=== PATIENT | male | born 1965 | race Caucasian/White ===

== ENCOUNTER 2018-04-25 16:13 | Emergency (ER) | payer BC ==
[2018-04-25] MEDS ORDERED: Metoclopramide IV* 5 MG/ML 2 ML VIAL IV ONE (17:06)
[2018-04-25] MEDS ORDERED: diPHENhydraMINE IV* 50 MG/ML 1 ml VIAL (BENADRYL) IV ONE (17:06)
--- NOTE | 2018-04-25 17:15 | ED ---
Headache - HPI Summary HPI Summary: This is makenzie Hidalgo documenting for attending Nader Rowley MD. This patient is a 52 year old MF presenting to [facility] with a chief complaint of a fluctuating, deep, throbbing L posterior ORTIZ that radiates to behind his eye since 04/20/2018. The patient rates the pain 4/10 in severity. Symptoms aggravated by movement of head. Patient reports not sleeping well, palpitations , and a sore spot on his throat. Patient denies any injuries, dizziness, vertigo , or light-headedness. He thinks the symptoms may be due to holding in a sneeze , but there was no pain immediately following it. The patient has taken ibuprofen which he reports has helped. 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 The patient does not smoke. He has a PMHx of diverticulitis. - History Of Current Complaint Chief Complaint: EDHeadache Stated Complaint: LT SIDE HEAD PAIN Time Seen by Provider: 04/25/18 16:55 Hx Obtained From: Patient Onset/Duration: Sudden Onset, Started days ago Currently Pain Is: Current Pain Scale(0-10)= - 4/10 Timing: Constant, Days - since 04/20/2018 Character: Throbbing - fluctuating, deep Location of Headache: Other: - L posterior Radiates to: behind his eye Aggravating Factor: Other - Movement Allevating Factors: Other (Noted In Comments) - Ibuprofin Associated Signs And Symptoms: Other (Noted In Comments) - Palpitations, not sleeping well, and a sore spot on his throat. Denies any injuries, dizziness, vertigo, or light-headedness. - Allergies/Home Medications Allergies/Adverse Reactions: Allergies Allergy/AdvReac Type Severity Reaction Status Date / Time meperidine [From Demerol] Allergy Nausea And Verified 04/25/18 17:10 Vomiting Home Medications: Home Medications Valsartan TAB* [Diovan TAB*] 40 mg PO DAILY 04/25/18 [History Confirmed 04/25/18 ] PMH/Surg Hx/FS Hx/Imm Hx Endocrine/Hematology History: Denies: Hx Anticoagulant Therapy, Hx Diabetes, Hx Thyroid Disease Cardiovascular History: Denies: Hx Hypertension, Hx Pacemaker/ICD Respiratory History: Denies: Hx Asthma, Hx Chronic Obstructive Pulmonary Disease (COPD) GI History: Reports: Hx Diverticulosis History: Denies: Hx Renal Disease Sensory History: Reports: Hx Contacts or Glasses Opthamlomology History: Reports: Hx Contacts or Glasses Neurological History: Denies: Hx Dementia, Hx Seizures Psychiatric History: Denies: Hx Substance Abuse - Surgical History Surgery Procedure, Year, and Place: appendectomy, ruptured diverticulitis. 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 Lives: With Family Alcohol Use: Occasionally Substance Use Type: Reports: None Smoking Status (MU): Never Smoked Tobacco Review of Systems Positive: Other - Not sleeping well Positive: Other - Sore spot on his throat Positive: Palpitations Positive: Other - Denies injuries Neurological: Other - Denies dizziness, denies vertigo, denies light-headedness Positive: Headache - fluctuating, deep, throbbing L posterior ORTIZ that radiates to behind his eye All Other Systems Reviewed And Are Negative: Yes Physical Exam - Summary Physical Exam Summary: Appearance: Well appearing, no pain distress Skin: warm, dry, reflects adequate perfusion Head/face: normal Eyes: EOMI, JUANITA ENT: 1 cm oval abrasion by his L ear Neck: supple, non-tender Respiratory: CTA, breath sounds present Cardiovascular: RRR, pulses symmetrical Abdomen: non-tender, soft Bowel Sounds: present Musculoskeletal: normal, strength/ROM intact Neuro: normal, sensory motor intact, A&Ox3 Triage Information Reviewed: Yes Vital Signs On Initial Exam: Initial Vitals Temp Pulse Resp BP Pulse Ox 97.5 F 66 15 167/104 98 04/25/18 16:15 04/25/18 16:15 04/25/18 16:15 04/25/18 16:15 04/25/18 16:15 Vital Signs Reviewed: Yes Diagnostics - Vital Signs Vital Signs Temp Pulse Resp BP Pulse Ox 04/25/18 16:15 97.5 F 66 15 167/104 98 - Laboratory Result Diagrams: 04/25/18 17:19 04/25/18 17:20 Lab Statement: Any lab studies that have been ordered have been reviewed, and results considered in the medical decision making process. - CT Head CTA CT Interpretation Completed By: Radiologist - CTA of the neck and head demonstrates no evidence of significant stenosis in either internal carotid artery. No evidence of aneurysmal dilatation, branch occlusion or carotid artery dissection is noted. ED Physician has reviewed this report. Brain CT CT Interpretation Completed By: Radiologist - No intracranial mass or hemorrhage is noted. ED Physician has reviewed this report. Re-Evaluation - Re-Evaluation n Re-Evaluation Time: 18:38 Change: Improved Comment: Sx are improved but he did feel a pain when he moved his head once. Physician believes it is likely cervical in nature, probably arthritic. Headache Course/Dx - Course Course Of Treatment: Patient with intermittent sharp pain that is felt to be pulsatile posterior to the left ear. Head CT as well as CT angiogram of the head and neck are performed. There is no evidence for subarachnoid hemorrhage, aneurysm, etc. Patient was feeling better following treatment was discharged in good condition on Mobic given a likely cervical source for his discomfort. - Diagnoses Differential Diagnosis/HQI/PQRI: Subdural Hematoma, Sinus Headache, Subarachnoid Hemorrhage, Tension Headache, Viral Syndrome, Other - Cervicogenic headache Provider Diagnoses: Cervicogenic headache Discharge - Sign-Out/Discharge Documenting (check all that apply): Patient Departure - D/C - Discharge Plan Condition: Improved Disposition: HOME Prescriptions: Meloxicam [Mobic] 7.5 - 15 mg PO DAILY PRN #30 tablet PRN Reason: neck pain/headache Patient Education Materials: Acute Headache (ED) Referrals: Ayo Culver MD [Primary Care Provider] - Additional Instructions: Call your doctor Friday to follow-up. Your headaches may be originating from your cervical spine in your neck. Return if worse, new symptoms or other concerns as discussed. You may benefit from physical therapy or care management specialist. - Billing Disposition and Condition Condition: IMPROVED Disposition: Home
[2018-04-25 17:25] LABS: ABS Basophils 0.1 10^3/ul (0-0.2); ABS Eosinophils 0.2 10^3/ul (0-0.6); ABS Monocytes 0.7 10^3/ul (0-0.8); ABS Neutrophils 3.8 10^3/ul (1.5-7.7); ABS Nucleated RBC 0 10^3/ul; Eosinophil % 2.8 % (0-6); Hematocrit 45 % (42-52); Hemoglobin 15.4 g/dl (14.0-18.0); Lymphocyte % 30.4 % (25-47); Mean Corpuscular HGB Conc 34 g/dl (31-36); Mean Corpuscular Hemoglobin 30 pg (27-31); Mean Corpuscular Volume 89 fL (80-94); Mean Platelet Volume 9.1 um3 (7.4-10.4); Nucleated Red Blood Cells % 0.1; Platelet Count 198 10^3/ul (150-450); Red Blood Count 5.09 10^6/ul (4.00-5.40); Red Cell Distribution Width 14 % (10.5-15); White Blood Count 6.7 10^3/ul (3.5-10.8)
[2018-04-25 17:41] LABS: EGFR Non-African American 73.9 (>60)
[2018-04-25] MEDS ORDERED: Iohexol 350* (CONTRAST) 500 ML MDV IV ONE (17:50)
--- NOTE | 2018-04-25 18:24 | RAD ---
Indication: Left occipital headache. CT of the brain was performed without IV contrast. Ventricular structures are midline. No midline shift is noted. The extra-axial spaces are unremarkable. There is no evidence of intracranial mass or hemorrhage. No other high or low density lesions are identified. Mastoid air cells and paranasal sinuses are otherwise unremarkable. IMPRESSION: No intracranial mass or hemorrhage is noted.
--- NOTE | 2018-04-25 18:27 | RAD ---
Indication: Left occipital headache. Contrast: Administered 80.1 ml of OMNIPAQUE 350 mg/ml CTA of the neck and head was performed after IV contrast administration. Coronal and sagittal reconstructed images were obtained. Multiple maximum intensity projection images were also obtained. Origins of the great vessels are grossly unremarkable. Common origin of left common carotid and brachiocephalic artery is noted. Common carotid arteries bilaterally are unremarkable. The internal carotid artery demonstrates no evidence of atherosclerosis. No evidence of carotid artery dissection is both vertebral arteries are patent. Dominant left vertebral artery is noted. Intracranial circulation demonstrates intracavernous portion of the internal carotid artery to be unremarkable. Normal A1 and M1 segments bifurcation is noted. Anterior and middle cerebral artery demonstrates no branch occlusion. Posterior cerebral artery are grossly unremarkable. No aneurysmal dilatation is noted. The venous structures are grossly unremarkable. No evidence of nonenhancing lesions are noted in the brain. Soft tissues of the neck demonstrates parotid glands and submandibular glands are unremarkable. Inferior thyroid lobes are unremarkable. The lung apices are unremarkable. IMPRESSION: CTA of the neck and head demonstrates no evidence of significant stenosis in either internal carotid artery. No evidence of aneurysmal dilatation, branch occlusion or carotid artery dissection is noted.
[2018-04-25 18:52] VITALS: BP 134/93
[2018-04-26] MEDS ORDERED: CMC:Meloxicam(NF) 7.5 MG TAB PO SCH (09:00)
== END 2018-04-25 18:52 | disposition home or self-care (01) ==
LOC: ED 16:13
DX: G44.89 Other headache syndrome (principal); R00.2 Palpitations; Z88.5 Allergy status to narcotic agent
CPT/HCPCS: 36415; 70450; 70496; 70498; 80048; 85025; 96374; 96375; 99283; J1200; J2765; Q9967

== ENCOUNTER 2018-08-15 19:22 | Emergency (ER) | payer BC ==
[2018-08-15 19:32] VITALS: BP 153/97
[2018-08-15] MEDS ORDERED: Tetan/Diph/Pertus SYR(Tdap)* 0.5 ML SYR(BOOSTRIX) use SYR IM ONE (19:33)
[2018-08-15] MEDS ORDERED: Levofloxacin TAB* 500 MG PO ONE (19:48)
[2018-08-15] MEDS ORDERED: Cephalexin CAP* 500 MG PO ONE (19:48)
--- NOTE | 2018-08-15 19:51 | ED ---
Skin Complaint - HPI Summary HPI Summary: Pt presents w/ 2 puncture wound to sole of Rt foot which occurred last night. Duncan metal piece through sole of shoe and into foot - had to pull from foot and shoe. Areas of puncture are tender and minimal bleeding at time of injury. cleaned with alcohol No FB sensation and does not believe anything is retained. Unsure of last tetanus. Areas are tender to touch and with direct weight bearing but this is tolerable. - History of Current Complaint Chief Complaint: UCSkin Time Seen by Provider: 08/15/18 19:33 Stated Complaint: STEPPED ON LARGE METAL STAPLE Hx Obtained From: Patient Pain Intensity: 1 - Allergy/Home Medications Allergies/Adverse Reactions: Allergies Allergy/AdvReac Type Severity Reaction Status Date / Time meperidine [From Demerol] Allergy Nausea And Verified 08/15/18 19:32 Vomiting PMH/Surg Hx/FS Hx/Imm Hx Previously Healthy: Yes Endocrine/Hematology History: Denies: Hx Anticoagulant Therapy, Hx Diabetes, Hx Thyroid Disease, Autoimmune Disease Cardiovascular History: Reports: Hx Hypertension - on med Denies: Hx Pacemaker/ICD Respiratory History: Denies: Hx Asthma, Hx Chronic Obstructive Pulmonary Disease (COPD) GI History: Reports: Hx Diverticulosis History: Denies: Hx Renal Disease Sensory History: Reports: Hx Contacts or Glasses Opthamlomology History: Reports: Hx Contacts or Glasses Neurological History: Denies: Hx Dementia, Hx Seizures Psychiatric History: Denies: Hx Substance Abuse - Surgical History Surgery Procedure, Year, and Place: appendectomy, ruptured diverticulitis. right wrist fx repair Infectious Disease History: No Infectious Disease History: Denies: Hx Clostridium Difficile, Hx Hepatitis, Hx Human Immunodeficiency Virus (HIV), Hx of Known/Suspected MRSA, Hx Shingles, Hx Tuberculosis, Traveled Outside the [place] in Last 30 Days - Family History Known Family History: Positive: Cardiac Disease, Other - Gout, - Social History Occupation: Employed Full-time Lives: With Family Alcohol Use: Occasionally Hx Substance Use: No Substance Use Type: Reports: None Hx Tobacco Use: No Smoking Status (MU): Never Smoked Tobacco Review of Systems Constitutional: Negative Positive: no symptoms reported Musculoskeletal: Negative Skin: Other - puncture wounds Rt foot Neurological: Negative Psychological: Normal All Other Systems Reviewed And Are Negative: Yes Physical Exam Triage Information Reviewed: Yes Vital Signs On Initial Exam: Initial Vitals Temp Pulse Resp BP Pulse Ox 98.7 F 87 16 153/97 99 08/15/18 19:28 08/15/18 19:28 08/15/18 19:28 08/15/18 19:28 08/15/18 19:28 Vital Signs Reviewed: Yes Appearance: Positive: Well-Appearing, No Pain Distress, Well-Nourished Skin: Positive: Warm, Skin Color Reflects Adequate Perfusion, Dry - 2 pinpoint scabs on sole of Rt foot - TTP - no palpable induration or sharp objects; no edema, no streaking, no drainage Head/Face: Positive: Normal Head/Face Inspection Eyes: Positive: Normal, EOMI ENT: Positive: Hearing grossly normal Respiratory/Lung Sounds: Positive: Breath Sounds Present Cardiovascular: Positive: Pulses are Symmetrical in both Upper and Lower Extremities. Negative: Leg Edema Left, Leg Edema Right Musculoskeletal: Positive: Normal, Strength/ROM Intact Neurological: Positive: Normal, Sensory/Motor Intact, Alert, Oriented to Person Place, Time, CN Intact II-III Psychiatric: Positive: Normal Diagnostics - Vital Signs Vital Signs Temp Pulse Resp BP Pulse Ox 08/15/18 19:28 98.7 F 87 16 153/97 99 - Laboratory Lab Statement: Any lab studies that have been ordered have been reviewed, and results considered in the medical decision making process. Course/Dx - Course Course Of Treatment: Refrained from XR as pt brought duncan metal piece with him - appears to be completely intact. Since this went through sole of shoe and pt is tender, will cover with prophylactic anbx for strep and pseud. Advised supportive care and close monitoring - reviewed danger s/sx and pt agrees w/ plan. - Diagnoses Provider Diagnoses: Puncture wound of right foot Discharge - Sign-Out/Discharge Documenting (check all that apply): Patient Departure All imaging exams completed and their final reports reviewed: No Studies - Discharge Plan Condition: Stable Disposition: HOME Prescriptions: Cephalexin CAP* [Keflex CAP*] 500 mg PO BID #10 cap Levofloxacin TAB* [Levaquin TAB*] 500 mg PO DAILY #5 tab Patient Education Materials: Puncture Wound (ED) Referrals: Ayo Culver MD [Primary Care Provider] - Additional Instructions: Soak foot 1 -2 x day in soapy soak alternating with epsom salt - rinse well, pat dry and cover wounds with bandage but avoid ointments, creams, etc Rest, elevate, ice/heat as needed for pain May also take ibuprofen alternating with acetaminophen for pain Follow-up with PCP if soreness persists or worsens *If you develop redness, swelling, streaking, purulent drainage, fever, chills, go to ED - Billing Disposition and Condition Condition: STABLE Disposition: Home
== END 2018-08-15 20:02 | disposition home or self-care (01) ==
LOC: UCEAST 19:22
DX: S91.331A Puncture wound without foreign body, right foot, initial encounter (principal); W22.8XXA Striking against or struck by other objects, initial encounter; Y92.9 Unspecified place or not applicable; Z88.5 Allergy status to narcotic agent
CPT/HCPCS: 90471; 90715; 99212; A9270-GY; G0463

== ENCOUNTER 2018-09-10 22:11 | Emergency (ER) | payer BC ==
--- OUTSIDE RECORDS SUMMARY | 2018-09-10 22:32 | XMS REPORT ---
:1965 External Reference #:[id number] Author Organization [facility] Address [address] [place] [address] Phone [phone] Care Team Providers Name Role Phone Ayo Culver MD Care Team Information Ring Attacher Unavailable Ayo Culver MD Primary Care Physician Unavailable Payers Type Date Identification Numbers Payment Provider Subscriber Commercial Effective: Policy Number: BC/BS Of ANDRE Jason Leon 2012 [id number] Group Name: [employer] [address] [address] PayID: [id number] [place] [address] Problems Date Description Provider Status Onset: 02/15/2014 Phlebitis and thrombophlebitis Ayo Culver M.D. Active Onset: 02/15/2014 Diverticular disease of colon Ayo Culver M.D. 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 Cigarette Use Nonsmoker Smokeless Tobacco Former Smokeless Tobacco User, Used Four Times Daily ETOH Use Rare Smoking Patient has never smoked Daily Caffeine Consumes on average 1 cup of coffee per day Seat Belt/Car Seat Always uses a seat belt Allergies, Adverse Reactions, Alerts Date Description Reaction Status Severity Comments 01/27/2008 Demerol active 09/07/2015 Bee Sting active Medications Medication Date Status Form Strength Qnty SIG Indications Ordering Provider Valsartan 10/07/ Active Tablets 40mg 90tab 1 by mouth I10 Bebe 2015 s every day Juan C Henson Probiotic / Active Capsules 1 po qd Unknown 0000 Multivitamins / Active Capsules 1 by mouth Unknown 0000 every day Ketoconazole 09/18/ Hx Cream 2% 30gm apply once B37.2 Samantha 2015 - a day x 2 Lennox, 11/12/ wks Afnp-C 2018 Lisinopril 09/21/ Hx Tablets 5mg 30tab 1 by mouth I10 Samantha 2015 - s every day Lennox, 10/07/ Afnp-C 2015 No Active 06/02/ Hx Unknown Medications 2014 - 2014 Tobramycin 06/02/ Hx Solution 0.3% 5ml 2 drops in 372.30 Lissette 2015 - the left Aaron, CREATIVE RESOURCE MANAGER 06/07/ eye three 2015 times a day times a day until clear Ciprofloxacin 02/15/ Hx Tablets 250mg 14tab 1 po bid Ayo Vinson HCL 2013 - Palomo, 06/02/ M.D. 2014 Indomethacin 02/15/ Hx Capsules 25mg 30cap 1 po tid 451.84 Ayo Vinson 2013 - prn pain Palomo, 02/25/ with food M.D. 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 2009 Chantix 03/24/ Hx Tablets 1mg 60tab 1 PO bid 305.1 Ayo ACelsa 2007 Palomo, 04/21/ M.D. 2012 Chantix 01/26/ Hx 1unit 1 starter 305.1 Ayo ACelsa 2007 pack Palomo, 03/24/ M.D. 2007 Vitamin D / Hx Tablets 1000Unit 1 po qd Unknown 0000 - 2015 Medications Administered in Office Medication Date Status Form Strength Qnty SIG Indications Ordering Provider TB Intradermal Injection Family Test 2007 [facility] Immunizations CPT Code Status Date Vaccine Lot # [id number] Given 08/15/2018 Tdap Tetanus, W Pertussis 48151 Given 08/04/2007 DO Not Use Split Influenza Virus Vaccine 68680 Given 05/28/2007 Tetanus And Diptheria Adult Preservative Free >7Yrs 18124 Given 06/29/1990 Hepatitis B Immunization, adult dosage, for intramuscular use 13208 Given 10/13/1989 Hepatitis B Immunization, adult dosage, for intramuscular use 99451 Given 08/27/1989 Hepatitis B Immunization, adult dosage, for intramuscular use 44972 Given 08/27/1989 Tetanus And Diptheria Adult Preservative Free >7Yrs 33185 Given 08/27/1989 MMR Virus Immunization Vital Signs Date Vital Result Comment 09/10/2018 BP Systolic 118 mmHg BP Diastolic 84 mmHg Heart Rate 72 /min Body Temperature 97.9 F Height 69 inches 5'9" Weight 237.00 lb BMI (Body Mass Index) 35.0 kg/m2 11/12/2017 BP Systolic 110 mmHg BP Diastolic 90 mmHg Heart Rate 64 /min Body Temperature 97.7 F Weight 245.12 lb 09/18/2016 BP Systolic 124 mmHg BP Diastolic 82 mmHg Heart Rate 60 /min Body Temperature 97.3 F Respiratory Rate 16 /min Height 69 inches 5'9" Weight 240.50 lb BMI (Body Mass Index) 35.5 kg/m2 Right Visual Acuity Distance 20/25 Left Visual Acuity Distance 20/25 11/01/2015 BP Systolic 128 mmHg BP Diastolic 94 mmHg Heart Rate 64 /min Body Temperature 97.9 F Respiratory Rate 16 /min Height 70 inches 5'10" Weight 231.00 lb BMI (Body Mass Index) 33.1 kg/m2 10/07/2015 BP Systolic 120 mmHg BP Diastolic 84 mmHg Heart Rate 80 /min Body Temperature 98.0 F Respiratory Rate 18 /min Height 70 inches 5'10" Weight 233.00 lb BMI (Body Mass Index) 33.4 kg/m2 09/21/2015 BP Systolic 146 mmHg BP Diastolic 100 mmHg Heart Rate 64 /min Body Temperature 98.3 F Respiratory Rate 18 /min Height 70 inches 5'10" Weight 239.00 lb BMI (Body Mass Index) 34.3 kg/m2 09/07/2015 BP Systolic 162 mmHg BP Diastolic 90 mmHg Heart Rate 60 /min Body Temperature 97.2 F Height 70 inches 5'10" Weight 245.50 lb BMI (Body Mass Index) 35.2 kg/m2 06/02/2015 BP Systolic 140 mmHg BP Diastolic 100 mmHg Heart Rate 72 /min Body Temperature 97.4 F Respiratory Rate 16 /min Height 69.5 inches 5'9.50" Weight 235.00 lb BMI (Body Mass Index) 34.2 kg/m2 02/15/2014 BP Systolic 144 mmHg BP Diastolic 90 mmHg Heart Rate 72 /min Body Temperature 97.3 F Respiratory Rate 16 /min Height 69.5 inches 5'9.50" Weight 233.00 lb BMI (Body Mass Index) 33.9 kg/m2 11/29/2013 BP Systolic 150 mmHg BP Diastolic 90 mmHg Heart Rate 68 /min Body Temperature 97.3 F Respiratory Rate 16 /min Height 69.5 inches 5'9.50" Weight 240.00 lb BMI (Body Mass Index) 34.9 kg/m2 04/21/2013 BP Systolic 128 mmHg BP Diastolic 96 mmHg Heart Rate 88 /min Body Temperature 98.0 F Height 69.5 inches 5'9.50" Weight 237.00 lb BMI (Body Mass Index) 34.5 kg/m2 01/19/2011 BP Systolic 120 mmHg BP Diastolic 80 mmHg Heart Rate 80 /min Body Temperature 99.0 F Height 69.5 inches 5'9.50" Weight 237.00 lb BMI (Body Mass Index) 34.5 kg/m2 02/16/2008 BP Systolic 130 mmHg BP Diastolic 80 mmHg Heart Rate 68 /min Height 69.5 inches 5'9.50" Weight 212.00 lb BMI (Body Mass Index) 30.9 kg/m2 01/27/2008 BP Systolic 112 mmHg BP Diastolic 82 mmHg Heart Rate 64 /min Body Temperature 98.0 F Respiratory Rate 16 /min Height 69.5 inches 5'9.50" Weight 212.00 lb BMI (Body Mass Index) 30.9 kg/m2 Results Test Date Test Result H/L Range Note Basic Metabolic Panel 04/25/2018 Sodium 138 mmol/L 135-145 Potassium 4.2 mmol/L 3.5-5.0 Chloride 104 mmol/L 101-111 Co2 Carbon Dioxide 27 mmol/L 22-32 Anion Gap 7 mmol/L 2-11 Glucose 82 mg/dL 70-100 Blood Urea Nitrogen 16 mg/dL 6-24 Creatinine 1.05 mg/dL 0.67-1.17 BUN/Creatinine Ratio 15.2 8-20 Calcium 9.6 mg/dL 8.6-10.3 Egfr Non- 73.9 >60 Egfr 89.4 >60 1 CBC Auto Diff 04/25/2018 White Blood Count 6.7 10^3/uL 3.5-10.8 Red Blood Count 5.09 10^6/uL 4.00-5.40 Hemoglobin 15.4 g/dL 14.0-18.0 Hematocrit 45 % 42-52 Mean Corpuscular Volume 89 fL 80-94 Mean Corpuscular Hemoglobin 30 pg 27-31 Mean Corpuscular HGB Conc 34 g/dL 31-36 Red Cell Distribution Width 14 % 10.5-15 Platelet Count 198 10^3/uL 150-450 Mean Platelet Volume 9.1 um3 7.4-10.4 Abs Neutrophils 3.8 10^3/uL 1.5-7.7 Abs Lymphocytes 2.0 10^3/uL 1.0-4.8 Abs Monocytes 0.7 10^3/uL 0-0.8 Abs Eosinophils 0.2 10^3/uL 0-0.6 Abs Basophils 0.1 10^3/uL 0-0.2 Abs Nucleated RBC 0 10^3/uL Granulocyte % 55.7 % 38-83 Lymphocyte % 30.4 % 25-47 Monocyte % 10.0 % High 0-7 Eosinophil % 2.8 % 0-6 Basophil % 1.1 % 0-2 Nucleated Red Blood Cells % 0.1 Complete Blood Count 10/07/2016 WBC 5.2 x10^3/UL 3.6-9.6 RBC 5.42 x10^6/UL 3.90-5.70 HGB 16.7 g/dL 12.1-17.2 HCT 49 % 36-50 MCV 91.0 fL 82.2-97.4 MCH 30.8 pg 27.6-33.3 MCHC 34.0 g/dL 33.0-35.5 RDW 13.8 % High 11.6-13.7 PLT 207 x10^3/UL 150-400 MPV 7.3 fL Low 7.4-10.4 Gran # 3.1 x10^3/UL 1.5-7.2 Lymph# 1.9 x10^3/UL 0.7-4.9 [place]# 0.2 x10^3/UL 0.1-0.9 Gran % 57.2 % 42.2-75.2 Lymph % 38.0 % 20.5-51.1 [place]% 4.8 % 1.7-9.3 Comprehensive Metabolic Prof 10/07/2016 Sodium 139 mEq/L 134-149 Potassium 4.6 mEq/L 3.6-5.5 Chloride 98 mEq/L 94-112 Carbon Dioxide 23 mEq/L 21-32 Glucose 108 mg/dL High 70-105 2 BUN 10 mg/dL 6-26 Creatinine 1.1 mg/dL 0.6-1.4 BUN/Creat Ratio 9.1 CALC 8.0-36.0 Calcium 9.8 mg/dL 8.6-10.2 Total Protein 7.2 g/dL 6.4-8.3 Albumin 4.7 g/dL 3.8-5.5 Globulin 2.5 g/dL 2.0-4.8 A/G Ratio 1.9 CALC 0.6-2.3 Alk. Phosphatase 80 U/L 22-95 Alt (SGPT) 62 U/L High 7-35 Ast (Sgot) 35 U/L High 5-34 Total Bilirubin 0.9 mg/dL 0.2-1.3 GFR Non- >60 ml/min/1.73m^ >=60 GFR >60 ml/min/1.73m^ >=60 Lipid Profile 10/07/2016 Cholesterol 186 mg/dL 120-200 Triglycerides 120 mg/dL 30-200 HDL Cholesterol 55 mg/dL 30-70 LDL (Calculated) 107 CALC 0-129 VLDL Cholesterol 24 mg/dL 0-50 HDL Risk Factor 3.4 CALC 0.0-4.4 Laboratory test finding 10/07/2016 PSA 0.4 ng/mL 0.0-4.0 TSH 2.73 mIU/L 0.50-6.00 Ua - Non Micro (Fma) 09/18/2016 Appearance yellow Color clear Glucose, Urine (Fma/CMC/CTX) neg Bilirubin neg Ketones neg SP Grav >=1.030 Blood neg PH 5.5 Protein neg Urobil 0.2 Nitrite neg Leukocytes (Fma/CMC/Centrex) neg Ua - Non Micro (Fma) 09/07/2015 Appearance yellow Color clear Glucose, Urine (Fma/CMC/CTX) neg Bilirubin neg Ketones neg SP Grav 1.020 Blood neg PH 5.5 Protein neg Urobil 0.2 Nitrite neg Leukocytes (Fma/CMC/Centrex) neg Complete Blood Count 09/07/2015 WBC 5.8 x10^3/UL 3.6-9.6 RBC 5.52 x10^6/UL 3.90-5.70 HGB 16.8 g/dL 12.1-17.2 HCT 50 % 36-50 MCV 91.0 fL 82.2-97.4 MCH 30.5 pg 27.6-33.3 MCHC 33.5 g/dL 33.0-35.5 RDW 13.9 % High 11.6-13.7 PLT 271 x10^3/UL 150-400 MPV 8.2 fL 7.4-10.4 Gran # 3.6 x10^3/UL 1.5-7.2 Lymph# 1.9 x10^3/UL 0.7-4.9 [place]# 0.3 x10^3/UL 0.1-0.9 Gran % 60.9 % 42.2-75.2 Lymph % 33.6 % 20.5-51.1 [place]% 5.5 % 1.7-9.3 Hepatitis Panel, Acute 09/07/2015 Hep A Ab, IgM Negative Negative 3 HBsAg Screen Negative Negative 3 Hep B Core Ab, IgM Negative Negative 3 Hep C Virus Ab 0.1 s/coratio 0.0-0.9 3, 4 Comprehensive Metabolic Prof 09/07/2015 Sodium 140 mEq/L 134-149 Potassium 4.1 mEq/L 3.6-5.5 Chloride 100 mEq/L 94-112 Carbon Dioxide 26 mEq/L 21-32 Glucose 106 mg/dL High 70-105 5 BUN 14 mg/dL 6-26 Creatinine 1.0 mg/dL 0.6-1.4 BUN/Creat Ratio 14.0 CALC 8.0-36.0 Calcium 9.7 mg/dL 8.6-10.2 Total Protein 7.6 g/dL 6.4-8.3 Albumin 4.9 g/dL 3.8-5.5 Globulin 2.7 g/dL 2.0-4.8 A/G Ratio 1.8 CALC 0.6-2.3 Alk. Phosphatase 89 U/L 22-95 Alt (SGPT) 60 U/L High 7-35 6 Ast (Sgot) 34 U/L 5-34 Total Bilirubin 0.8 mg/dL 0.2-1.3 GFR Non- >60 ml/min/1.73m^ >=60 GFR >60 ml/min/1.73m^ >=60 Lipid Profile 09/07/2015 Cholesterol 230 mg/dL High 120-200 Triglycerides 105 mg/dL 30-200 HDL Cholesterol 69 mg/dL 30-70 LDL (Calculated) 140 CALC High 0-129 VLDL Cholesterol 21 mg/dL 0-50 HDL Risk Factor 3.3 CALC 0.0-4.4 Laboratory test finding 09/07/2015 TSH 3.52 mIU/L 0.50-6.00 7 PSA 1.1 ng/mL 0.0-4.0 Panel 410086- Nys PT Only 09/07/2015 HIV 1/O/2 Abs-Index Value <1.00 < 1.00 3, 8 HIV 1/O/2 Abs, Qual Non Reactive Non Reactive 3 Throat-Beta Strept 01/01/2015 Throat Beta Strep (SEE NOTE) 9 Culture Surgical Pathology 05/02/2014 S RUN DATE: <SEE NOTE> Laboratory test finding 02/06/2014 Creatine Kinase 41 U/L 10-223 Troponin I 0.00 ng/mL <0.03 11 C Reactive Protein 97.08 mg/L High < 5.00 12 Comp Metabolic Panel 02/06/2014 Sodium 138 mmol/L 133-145 Potassium 4.1 mmol/L 3.7-5.6 Chloride 105 mmol/L 101-111 Co2 Carbon Dioxide 26 mmol/L 22-32 Anion Gap 7 mmol/L 2-11 Glucose 98 mg/dL 70-100 Blood Urea Nitrogen 13 mg/dL 6-24 Creatinine 1.16 mg/dL 0.67-1.17 BUN/Creatinine Ratio 11.2 8-20 Calcium 9.9 mg/dL 8.6-10.3 Total Protein 7.4 g/dL 6.4-8.9 Albumin 4.6 g/dL 3.2-5.2 Globulin 2.8 g/dL 2-4 Albumin/Globulin Ratio 1.6 1-3 Total Bilirubin 1.10 mg/dL High 0.2-1.0 Alkaline Phosphatase 84 U/L 34-104 Alt 48 U/L 7-52 Ast 19 U/L 13-39 Egfr Non- 66.9 >60 Egfr 86.1 >60 13 Laboratory test finding 02/06/2014 Activated Partial 30.5 seconds 24.0- 36.1 Thrombo Time Inr/Protime 02/06/2014 Inr 0.94 0.85-1.06 Laboratory test finding 02/06/2014 Lactic Acid 1.6 mmol/L 0.5-2.2 CBC Auto Diff 02/06/2014 White Blood Count 15.4 10^3/uL High 4.8-10.8 Red Blood Count 5.72 10^6/uL High 4.0-5.4 Hemoglobin 17.0 g/dL 14.0-18.0 Hematocrit 51 % 42-52 Mean Corpuscular Volume 88 fL 80-94 Mean Corpuscular Hemoglobin 30 pg 27-31 Mean Corpuscular HGB Conc 34 g/dL 31-36 Red Cell Distribution Width 14 % 10.5-15 Platelet Count 194 10^3/uL 150-450 Mean Platelet Volume 9 um3 7.4-10.4 Abs Neutrophils 14.3 10^3/uL High 1.5-7.7 Abs Lymphocytes 0.7 10^3/uL Low 1.0-4.8 Abs Monocytes 0.5 10^3/uL 0-0.8 Abs Eosinophils 0 10^3/uL 0-0.6 Abs Basophils 0 10^3/uL 0-0.2 Abs Nucleated RBC 0.03 10^3/uL Granulocyte % 92.4 % High 38-83 Lymphocyte % 4.3 % Low 25-47 Monocyte % 2.9 % 1-9 Eosinophil % 0.1 % 0-6 Basophil % 0.3 % 0-2 Nucleated Red Blood Cells % 0.2 Urine Microscopic 02/06/2014 Urine WBC 1+ (<3 /hpf) None Seen Urine RBC 1+ (<3 /hpf) None Seen Urine Mucus Present /lpf Absent Crystals Urine Amorphous /lpf None Seen Urinalysis 02/06/2014 Urine Color Lilian Urine Appearance Cloudy Urine Specific Vivian 1.035 High 1.010-1.030 Urine Esterase Trace Negative Urine Nitrate Negative Negative Urine Urobilinogen Negative E.U./dL Negative Urine Protein 1+ mg/dL Negative Urine pH 6.5 5-9 Urine Blood Negative Negative Urine Ketones Trace mg/dL Negative Urine Bilirubin 1+ Negative Urine Glucose Negative mg/dL Negative CBC Auto Diff 09/15/2012 White Blood Count 7.8 10^3/uL 4.8-10.8 Red Blood Count 5.45 10^6/uL High 4.0-5.4 Hemoglobin 16.8 g/dL 14.0-18.0 Hematocrit 48 % 42-52 Mean Corpuscular Volume 87 fL 80-94 Mean Corpuscular Hemoglobin 31 pg 27-31 Mean Corpuscular HGB Conc 35 g/dL 31-36 Red Cell Distribution Width 13 % 10.5-15 Platelet Count 175 10^3/uL 150-450 Mean Platelet Volume 10 um3 7.4-10.4 Abs Neutrophils 6.0 10^3/uL 1.5-7.7 Abs Lymphocytes 0.9 10^3/uL Low 1.0-4.8 Abs Monocytes 0.8 10^3/uL 0-0.8 Abs Eosinophils 0 10^3/uL 0-0.6 Abs Basophils 0.1 10^3/uL 0-0.2 Abs Nucleated RBC 0 10^3/uL Granulocyte % 77.0 % 38-83 Lymphocyte % 10.9 % Low 25-47 Monocyte % 10.1 % High 1-9 Eosinophil % 0.5 % 0-6 Basophil % 1.5 % 0-2 Nucleated Red Blood Cells % 0 Laboratory test finding 09/15/2012 Erythrocyte Sed Rate 9 mm/Hr 0-14 Comp Metabolic Panel 09/15/2012 Sodium 135 mmol/L 133-145 Potassium 4.5 mmol/L 3.5-5.0 Chloride 110 mmol/L 101-111 Co2 Carbon Dioxide 23.0 mmol/L 22-32 Anion Gap 2.0 mmol/L 2-11 Glucose 92 mg/dL 70-100 Blood Urea Nitrogen 9 mg/dL 6-24 Creatinine 1.00 mg/dL 0.50-1.40 BUN/Creatinine Ratio 9.0 8-20 Calcium 9.1 mg/dL 8.1-9.9 Total Protein 6.3 g/dL 6.2-8.1 Albumin 4.5 g/dL 3.6-5.4 Globulin 1.8 g/dL Low 2-4 Albumin/Globulin Ratio 2.5 1-3 Total Bilirubin 1.2 mg/dL 0.4-1.5 Alkaline Phosphatase 82 U/L 30-110 Alt 63 U/L High 14-54 Ast 36 U/L 12-42 Egfr Non- 79.8 >60 Egfr 102.6 >60 14 Laboratory test finding 09/15/2012 Troponin I 0 ng/mL 0-0.06 15 C Reactive Protein 4.0 mg/dL High Less than 0.5 Laboratory test 09/15/2012 HIV 1 2 AB Self Nonreactive Nonreactive 16 finding Referred Lipid Profile 09/13/2010 Cholesterol 204 mg/dL High 120-200 HDL 50 mg/dL 30-70 Triglycerides 150 mg/dL 30-200 HDL Risk Factor 4.1 CALC Low 4.2-7.0 LDL (Calculated) 125 CALC 0-129 VLDL (Calculated) 30 mg/dL 0-50 Comprehensive Metabolic Prof 09/13/2010 Albumin 4.8 g/dL 3.8-5.5 Alk. Phos. 89 U/L 22-95 Alt (SGPT) 46 U/L High 10-40 17 Ast (Sgot) 25 U/L 5-34 BUN 13 mg/dL 6-26 Calcium 9.4 mg/dL 8.6-10.2 Chloride 103 mEq/L 94-112 Creatinine 1.2 mg/dL 0.6-1.4 Carbon Dioxide 26 mEq/L 21-32 Glucose 98 mg/dL 70-105 Sodium 141 mEq/L 134-149 Total Bilirubin 0.6 mg/dL 0.2-1.3 Total Protein 7.1 g/dL 6.3-8.1 Potassium 4.5 mEq/L 3.6-5.5 Globulin 2.2 g/dL 2.0-4.8 A/G Ratio 2.2 Calc 0.6-2.2 BUN/Creat Ratio 10.8 Calc 8.0-36.0 CBC (Fma) 09/13/2010 WBC 5.7 3.6-9.6 RBC 5.71 High 3.90-5.70 Hemoglobin (Fma/CMC/CTX) 15.2 g/dL 12.1 - 17.2 Hematocrit (Fma/CMC/CTX) 46.6 % 36.1 - 50.3 Platelets 265 10^3/ul 150-400 Lymph% 37.5 20.5-51.1 Mixed% 5.8 Neutrophils % 56.7 Mean Corpuscular Vol 82 Low 82.2-97.4 Mean Corpuscular Hemoglobin 26.5 Low 27.6-33.3 Mean Corpuscular Hemo Concen 32.5 32.0-36.0 RDW 13.2 11.6-13.7 Mean Platelet Volume 9.2 6.5-11.0 1 Because ethnic data is not always readily available, this report includes an eGFR for both -Americans and non- Americans. The National Kidney Disease Education Program (NKDEP) does not endorse the use of the MDRD equation for patients that are not between the ages of 18 and 70, are , have extremes of body size, muscle mass, or nutritional status, or are non- or non-. According to the National Kidney Foundation, irrespective of diagnosis, the stage of the disease is based on the level of kidney function: Stage Description GFR(mL/min/1.73 m(2)) 1 Kidney damage with normal or decreased GFR 90 2 Kidney damage with mild decrease in GFR 60-89 3 Moderate decrease in GFR 30-59 4 Severe decrease in GFR 15-29 5 Kidney failure <15 (or dialysis) 2 NON-FASTING 3 2 ssts 4 Negative: < 0.8 Indeterminate: 0.8 - 0.9 Positive: > 0.9 In order to reduce the incidence of a false positive result, the CDC recommends that all s/co ratios between 1.0 and 10.9 be confirmed by a more specific supplemental or PCR testing. [facility] offers HCV Ab w/Reflex to Verification test #510014. 5 RESULTS VERIFIED BY REPEAT ANALYSIS 6 RESULTS VERIFIED BY REPEAT ANALYSIS 7 FASTING 8 Index Value: Specimen reactivity relative to the negative cutoff. 9 RUN DATE: 01/03/15 [facility] LAB LIVE PAGE 1 RUN TIME: [address] [place] [id number] Specimen Inquiry Name: JASON LEON : [address]: Gabriela Parry MD Acct: [id number] Unit: [id number] AGE: 49 Location: [facility] Re01/01/15 SEX: M Status: DEP ER SPEC: [id number] MOIAR: 01/01/15-42 [facility] DR: Gabriela Parry MD REQ: [id number] RECD: 01/01/15-120 STATUS: NERY GILLESPIE DR: [facility] Ayo Culver MD _ SOURCE: THROAT SPDESC: ORDERED: Throat Beta Str Procedure Result Verified Site Throat Beta Strep Culture Final 01/03/15- 0803 ML Negative For Group A Beta Streptococcus * ML - MAIN LAB ([facility]) . END OF REPORT * ML=Testing performed at Main Lab DEPARTMENT OF PATHOLOGY, [facility] [employer] [place], [place] [address] Toni Moseley M.D. Director [facility] # [id number] 10 RUN DATE: 05/03/14 [facility] LAB LIVE PAGE 1 RUN TIME: 8811 [facility] [employer] [place], [place] [address] Specimen Inquiry Name: JASON LEON : [address]: Luca Diamond MD Acct: [id number] Unit: [id number] AGE: 48 Location: [facility] Re05/02/14 SEX: M Status: REG REF SPEC: [id number] MOIRA: 05/02/14- SUBM DR: Luca Diamond MD REQ: [id number] RECD: 05/02/14-069 STATUS: SHANTEL GILLESPIE DR: Ayo Culver MD _ ORDERED: LEVEL IV FINAL DIAGNOSIS Colon, proximal descending, biopsy: A. Tubular adenoma. B. No high grade dysplasia or malignancy. CLINICAL HISTORY Screening colonoscopy with rectal bleeding POST-OPERATIVE DIAGNOSIS Screening colonoscopy to cecum - long loop left side. 3+ tics sigmoid and distal descending, a few tics right side. Descending colon polyp, diverticulosis - left greater than hepatic flexure GROSS DESCRIPTION The specimen is received in formalin labeled Jason Leon, Proximal Descending Colon Polyp, and consists of a 0.4 x 0.3 x 0.2 cm. rock-pink polypoid soft tissue fragment. Submitted entirely, one cassette. Signed (signature on file) Ilene Pillai MD 09/04 0375 END OF REPORT * ML=Testing performed at Main Lab DEPARTMENT OF PATHOLOGY, [address] [place] [address] Toni Moesley M.D. Director [facility] # [id number] 11 Reference Range and Interpretation: TnI (ng/mL) Interpretation Less Than 0.03 ng/mL Not supportive of diagnosis of SC 0.03 - 0.50 ng/mL Indeterminate: suggest serial studies if clinically indicated. Greater than 0.5 ng/mL Consistent with diagnosis of SC 12 Acute inflammation: >10.00 13 Because ethnic data is not always readily available, this report includes an eGFR for both -Americans and non- Americans. The National Kidney Disease Education Program (NKDEP) does not endorse the use of the MDRD equation for patients that are not between the ages of 18 and 70, are , have extremes of body size, muscle mass, or nutritional status, or are non- or non-. According to the National Kidney Foundation, irrespective of diagnosis, the stage of the disease is based on the level of kidney function: Stage Description GFR(mL/min/1.73 m(2)) 1 Kidney damage with normal or decreased GFR 90 2 Kidney damage with mild decrease in GFR 60-89 3 Moderate decrease in GFR 30-59 4 Severe decrease in GFR 15-29 5 Kidney failure <15 (or dialysis) 14 Because ethnic data is not always readily available, this report includes an eGFR for both -Americans and non- Americans. The National Kidney Disease Education Program (NKDEP) does not endorse the use of the MDRD equation for patients that are not between the ages of 18 and 70, are , have extremes of body size, muscle mass, or nutritional status, or are non- or non-. According to the National Kidney Foundation, irrespective of diagnosis, the stage of the disease is based on the level of kidney function: Stage Description GFR(mL/min/1.73 m(2)) 1 Kidney damage with normal or decreased GFR 90 2 Kidney damage with mild decrease in GFR 60-89 3 Moderate decrease in GFR 30-59 4 Severe decrease in GFR 15-29 5 Kidney failure <15 (or dialysis) 15 Reference Range and Interpretation: TnI (ng/ml) Interpretation Less Than 0.06 ng/mL Not supportive of diagnosis of SC 0.06 - 0.50 ng/ml Indeterminate: suggest serial studies if clinically indicated. Greater than 0.5 ng/mL Consistent with diagnosis of SC 16 It is recognized that currently available assays for the detection of antibodies to HIV-1 and/or HIV-2 may not detect all infected individuals. HIV antibodies may be undetectable in some stages of the infection and in some clinical conditions. The performance of this assay has not been established for populations of infants or children. Assayed by Chemiluminescence Microparticle Immunoassay on the Siemens Advia Centaur CP. Values obtained with different methods or kits cannot be used interchangeably.The diagnostic specificity of the ADVIA Centaur 1/O/2 Enhanced assay in the low risk population was 99.90% (6052/6058) with a 95% confidence interval of 99.78 to 99.96%. 17 RESULT TIM'D Procedures Date CPT Code Description Status 09/18/2016 46361 Vision Test- screening test of visual acuity, Completed quantitative, bila 05/02/2014 Colonoscopy Completed Encounters Type Date Location Provider CPT E/M Dx Office Visit 11/12/2017 10:15a [facility] Bebe Henson Claus-C 46430 I10 R06.83 Office Visit 09/18/2016 9:00a [facility] Cavazoskrishna-C 05081 Z00.01 B37.2 I10 Office Visit 11/01/2015 11:30a [facility] Ilene AburtobhartARNALDO 21554 I10 J01.90 Office Visit 10/07/2015 9:00a [facility] Office Samantha HighClaus-C 72016 I10 Office Visit 09/21/2015 3:30p [facility] Samantha High Susykrishna-C 22647 I10 Office Visit 09/07/2015 9:00a [facility] Office Samantha High Susykrishna-C 91338 Z00.00 R03.0 Office Visit 06/02/2015 11:00a [facility] [place] [place] [address] 372.30 796.2 Office Visit 02/15/2014 9:40a Main Office Ayo Culver M.D. 92650 562.10 451.84 Office Visit 11/29/2013 1:30p [facility] Office IleneARNALDO Montemayor 55945 680.8 Office Visit 04/21/2013 2:30p [facility] [place] [place] [address] 562.11 Office Visit 01/19/2011 11:00a Main Office ARNALDO Nichole 77722 562.11 Office Visit 01/27/2008 2:30p [facility] Office Ayo Culver M.D. 37395 305.1 Plan of Care 09/10/2018 - Rupa Castro, NPZ00.00 Encntr for general adult medical exam w /o abnormal findingsNew Labs:CBC Electronic ([facility] New)Comp MetabolicTSH ([facility]/ [facility])Lipid Panel-ALL Lab CompaniesPSA (ALL Lab Comp)Hemoglobin A1c ([facility]) Comments:You are in excellent general health. I recommend regular physical exams with attention to good nutrition and exercise, eye exams every other year , and dental exams twice yearly. ~B_~U_Goals:~u_~b_2 fresh fruits daily3 helpings of fresh green and multicolored vegetablesEat from the whole color spectrum. 40-60 Oz water daily~B_~U_MOVE YOUR BODY.~u_~b_ Bodies were made to be moved. exercise 30 minutes at least 4-5 times [id number] Essential ( primary) hypertensionComments:Call or return to the office if:* you get more than one blood pressure reading above 160/100 (even if only one of the numbers is high)* you feel close to passing out or actually pass out* you have new or worsening swelling in the ankles, legs, hands, or face* you develop palpiatations or funny heartbeatsAllComments:1. Patient has been queried about patient's goals/preferences and functional/lifestyle goals at relevant visits. If relevant, describe: Has been discussed, noted above2. Treatment goals as explainedto the patient: see above3. Are there barriers to meeting treatment goals? Yes If Yes, please describe: Barriers include possible insurance limits, disease process, and difficulty with lifestyle changes4. Self- Management goals as described to the patient: Yes, see above As always, we strongly encourage a healthy diet and making physical activity a part of your every day life. If you have questions about how or where to start, please contact the office.
--- NOTE | 2018-09-10 23:56 | ED ---
Head Injury - HPI Summary HPI Summary: Patient complains of head injury with scalp abrasions status post fall down multiple stairs into the basement. Positive EtOH. LOC unknown. Patient denies any pain, injury or symptoms other than abrasions on scalp. stating patient had significant fall, positive EtOH, and was complaining of head pain after fall. - History Of Current Complaint Chief Complaint: EDHeadInjury Stated Complaint: FALL/HEAD INJURY Time Seen by Provider: 09/10/18 22:41 Hx Obtained From: Patient, Family/Insurance Verifier Mechanism Of Injury: Other Onset/Duration: Started Hours Ago Onset of Pain: Immediate Severity Currently: Moderate Severity Initially: Moderate Pain Intensity: 5 Pain Scale Used: 0-10 Numeric Location of Head Injury: Diffuse Character: Dull Associated Signs And Symptoms: LOC Duration Unknown - Allergies/Home Medications Allergies/Adverse Reactions: Allergies Allergy/AdvReac Type Severity Reaction Status Date / Time meperidine [From Demerol] Allergy Nausea And Verified 09/10/18 22:19 Vomiting PMH/Surg Hx/FS Hx/Imm Hx Endocrine/Hematology History: Denies: Hx Anticoagulant Therapy, Hx Diabetes, Hx Thyroid Disease Cardiovascular History: Reports: Hx Hypertension - on med Denies: Hx Pacemaker/ICD Respiratory History: Denies: Hx Asthma, Hx Chronic Obstructive Pulmonary Disease (COPD) GI History: Reports: Hx Diverticulosis History: Denies: Hx Renal Disease Sensory History: Reports: Hx Contacts or Glasses Opthamlomology History: Reports: Hx Contacts or Glasses Neurological History: Denies: Hx Dementia, Hx Seizures Psychiatric History: Denies: Hx Substance Abuse - Surgical History Surgery Procedure, Year, and Place: appendectomy, ruptured diverticulitis. right wrist fx repair Infectious Disease History: No Infectious Disease History: Denies: Hx Clostridium Difficile, Hx Hepatitis, Hx Human Immunodeficiency Virus (HIV), Hx of Known/Suspected MRSA, Hx Shingles, Hx Tuberculosis, Traveled Outside the [place] in Last 30 Days - Family History Known Family History: Positive: Cardiac Disease, Other - Gout, - Social History Alcohol Use: Occasionally Hx Substance Use: No Substance Use Type: Reports: None Hx Tobacco Use: No Smoking Status (MU): Never Smoked Tobacco Review of Systems Constitutional: Negative Eyes: Negative ENT: Negative Cardiovascular: Negative Respiratory: Negative Gastrointestinal: Negative Genitourinary: Negative Musculoskeletal: Negative Skin: Other Positive: Headache Psychological: Normal All Other Systems Reviewed And Are Negative: Yes Physical Exam - Summary Physical Exam Summary: Multiple abrasions to the top of the scalp. No lacerations, no indication for suturing. No facial trauma, oral trauma noted. No pain to palpation of neck, back, chest wall, abdomen. Patient moves lateral upper and lower extremities without any indication of pain. No indication of trauma, wound noted other then to scalp. Neuro exam normal. Triage Information Reviewed: Yes Vital Signs On Initial Exam: Initial Vitals Temp Pulse Resp BP Pulse Ox 97.0 F 88 16 116/102 95 09/10/18 22:12 09/10/18 22:12 09/10/18 22:12 09/10/18 22:12 09/10/18 22:12 Vital Signs Reviewed: Yes Appearance: Positive: Well-Appearing Skin: Positive: Warm Head/Face: Positive: Normal Head/Face Inspection Eyes: Positive: Normal ENT: Positive: Normal ENT inspection Dental: Negative: Dental Fracture @, Bleeding Neck: Positive: Supple Respiratory/Lung Sounds: Positive: Clear to Auscultation Cardiovascular: Positive: Normal Abdomen Description: Positive: Nontender Musculoskeletal: Positive: Normal Neurological: Positive: Normal Psychiatric: Positive: Normal AVPU Assessment: Alert - Amanda Coma Scale Best Eye Response: 4 - Spontaneous Best Motor Response: 6 - Obeys Commands Best Verbal Response: 5 - Oriented Coma Scale Total: 15 Diagnostics - Vital Signs Vital Signs Temp Pulse Resp BP Pulse Ox 09/10/18 23:05 57 104/68 91 09/10/18 23:00 58 90 09/10/18 22:35 57 125/79 94 09/10/18 22:34 53 92 09/10/18 22:12 97.0 F 88 16 116/102 95 - Laboratory Lab Statement: Any lab studies that have been ordered have been reviewed, and results considered in the medical decision making process. Head Injury Course/Dx Course Of Treatment: Patient complains of head injury with scalp abrasions status post fall down multiple stairs into the basement. Positive EtOH. LOC unknown. Patient denies any pain, injury or symptoms other than abrasions on scalp. stating patient had significant fall, positive EtOH, and was complaining of head pain after fall. Physical exam:Multiple abrasions to the top of the scalp. No lacerations, no indication for suturing. No facial trauma , oral trauma noted. No pain to palpation of neck, back, chest wall, abdomen. Patient moves lateral upper and lower extremities without any indication of pain. No indication of trauma, wound noted other then to scalp. Neuro exam normal. Patient O2 sats seen to drop into the high 80s when sleeping, but normal O2 sats when awake and speaking. Vital signs otherwise within normal limits and stable. states patient has history of sleep apnea. EKG sinus rhythm with frequent PACs. CT brain and C-spine negative. Patient continued to have no symptoms 2 hours after initial exam. - Diagnoses Provider Diagnoses: Fall, Head injury Discharge - Sign-Out/Discharge Documenting (check all that apply): Patient Departure - Discharge Plan Condition: Stable Disposition: HOME Patient Education Materials: Head Injury (ED) Referrals: Ayo Culver MD [Primary Care Provider] - Additional Instructions: Return to the ED for any new or worsening symptoms - Billing Disposition and Condition Condition: STABLE Disposition: Home
[2018-09-11 00:35] VITALS: BP 100/57
== END 2018-09-11 00:36 | disposition home or self-care (01) ==
LOC: ED 22:11
DX: S09.90XA Unspecified injury of head, initial encounter (principal); S00.01XA Abrasion of scalp, initial encounter; W10.9XXA Fall (on) (from) unspecified stairs and steps, initial encounter; Y92.9 Unspecified place or not applicable; I10 Essential (primary) hypertension
CPT/HCPCS: 70450; 71045; 72125; 93005; 99283

== ENCOUNTER 2023-03-23 09:12 | Inpatient (IN) ==
[2023-03-23] MEDS ORDERED: HYDROmorphone 1 MG/1 ML SYRINGE IV ONE ×2 (09:19→09:30)
[2023-03-23] MEDS ORDERED: Ondansetron 4 mg VIAL 2 MG/ML 2 ml VIAL IV ONE (09:20)
[2023-03-23] MEDS ORDERED: Piperacillin/Tazobac ADVAN 3.375 GM in NS 0.9% 100 ml BAG 100 ML IV ONE (09:20)
[2023-03-23] MEDS ORDERED: NS 0.9% 1000 ml BAG 1,000 ML IV ONE (09:20)
[2023-03-23 09:30] LABS: ABS Basophils 0.1 10^3/uL (0.0-0.1); ABS Eosinophils 0.2 10^3/uL (0.0-0.5); ABS Lymphocytes 2.9 10^3/uL (1.0-4.8); ABS Monocytes 1.2 10^3/uL (0.0-1.1); ABS Neutrophils 9.6 10^3/uL (1.5-7.6); ABS Nucleated RBC 0.06 10^3/ul; Eosinophil % 1.4 %; Hematocrit 49.8 % (38-53); Hemoglobin 17.6 g/dL (13.2-16.3); Mean Corpuscular Hemoglobin 31.2 pg (27-33); Mean Corpuscular Hgb Conc 35.3 g/dL (31-36); Mean Corpuscular Volume 88.4 fL (80-97); Mean Platelet Volume 9.4 fL (7.5-11.2); Nucleated Red Blood Cells % 0.4 /100 WBC (0.0-0.4); Platelet Count 228 10^3/uL (150-450); Red Blood Count 5.63 10^6/uL (4.06-5.63); Red Cell Distribution Width 13.9 % (12-17)
[2023-03-23 09:42] LABS: INR 1.09 (0.88-1.18)
[2023-03-23 09:47] LABS: Albumin 4.7 g/dL (3.2-5.2); Albumin/Globulin Ratio 1.5 (1-3); C Reactive Protein 154.65 mg/L (<8.01); Calcium 10.2 mg/dL (8.6-10.3); Creatinine, Serum 1.03 mg/dL (0.67-1.17); Globulin 3.2 g/dL (2-4); Phosphorus 1.8 mg/dL (2.5-5.0); Potassium 3.9 mmol/L (3.5-5.0); Total Bilirubin 1.2 mg/dL (0.2-1.0); Total Protein 7.9 g/dL (6.4-8.9); eGFR CKD-EPI 84.2 (>60)
[2023-03-23] MEDS ORDERED: Iohexol 350 (CONTRAST) 500 ML MDV IV ONE (10:12)
[2023-03-23 11:23] LABS: High Sensitivity Troponin 1 Hr 5 pg/mL (<20)
[2023-03-23] MEDS: HYDROmorphone 1 MG/1 ML SYRINGE IV SLOW PU PRN ×5 (11:34→19:48)
[2023-03-23 12:07] LABS: Urine Appearance Clear; Urine Bilirubin Negative (Negative); Urine Blood Negative (Negative); Urine Color Yellow; Urine Glucose Negative (Negative); Urine Ketones 1+ (Negative); Urine Nitrite Negative (Negative); Urine Protein Negative (Negative); Urine Urobilinogen Negative (Negative)
[2023-03-23 12:08] LABS: Urine Specific Gravity > 1.060 (1.002-1.030)
[2023-03-23] MEDS ORDERED: ZOSYN 3.375 GM Q8H per EXTENDED INFUSION IV SCH (13:30)
[2023-03-23] MEDS ORDERED: Piperacillin/Tazobactam VIAL 3.375 GM in NS 0.9% 100 ml BAG 100 ML IVPB SCH (15:00)
[2023-03-23] MEDS: HYDROmorphone 0.5 MG/0.5 ML SYRINGE IV SLOW PU PRN ×2 (21:47→23:11)
[2023-03-23] MEDS: ZOSYN 3.375 GM Q8H per EXTENDED INFUSION IV SCH (23:14)
[2023-03-23] MEDS: D5W 1/2 NS 40 Meq KCL 1000 ml 1,000 ML IV SCH (23:15)
[2023-03-24] MEDS: HYDROmorphone 0.5 MG/0.5 ML SYRINGE IV SLOW PU PRN ×6 (02:14→09:43)
[2023-03-24] MEDS: D5W 1/2 NS 40 Meq KCL 1000 ml 1,000 ML IV SCH (02:21)
[2023-03-24] MEDS: ZOSYN 3.375 GM Q8H per EXTENDED INFUSION IV SCH ×3 (05:27→21:20)
[2023-03-24 05:58] LABS: Hematocrit 44.8 % (38-53); Hemoglobin 15.5 g/dL (13.2-16.3); Mean Corpuscular Hemoglobin 30.7 pg (27-33); Mean Corpuscular Hgb Conc 34.5 g/dL (31-36); Mean Corpuscular Volume 88.9 fL (80-97); Mean Platelet Volume 10.1 fL (7.5-11.2); Platelet Count 171 10^3/uL (150-450); Red Blood Count 5.04 10^6/uL (4.06-5.63); Red Cell Distribution Width 13.9 % (12-17); White Blood Count 15.1 10^3/uL (3.6-10.2)
[2023-03-24 06:10] LABS: Calcium 8.9 mg/dL (8.6-10.3); Creatinine, Serum 0.95 mg/dL (0.67-1.17); Potassium 3.8 mmol/L (3.5-5.0); eGFR CKD-EPI 92.8 (>60)
[2023-03-24 06:19] LABS: ABS Basophils 0.1 10^3/uL (0.0-0.1); ABS Eosinophils 0.1 10^3/uL (0.0-0.5); ABS Lymphocytes 1.4 10^3/uL (1.0-4.8); ABS Monocytes 0.8 10^3/uL (0.0-1.1); ABS Neutrophils 12.9 10^3/uL (1.5-7.6); ABS Nucleated RBC 0.01 10^3/ul; Eosinophil % 0.4 %
[2023-03-24] MEDS: HYDROmorphone 1 MG/1 ML SYRINGE IV SLOW PU PRN ×4 (11:12→21:14)
[2023-03-24] MEDS: Ondansetron 4 mg VIAL 2 MG/ML 2 ml VIAL IV PRN (14:51)
[2023-03-25] MEDS: HYDROmorphone 1 MG/1 ML SYRINGE IV SLOW PU PRN (02:07)
[2023-03-25] MEDS: D5W 1/2 NS 40 Meq KCL 1000 ml 1,000 ML IV SCH ×3 (02:30→19:55)
[2023-03-25] MEDS: ZOSYN 3.375 GM Q8H per EXTENDED INFUSION IV SCH ×3 (04:58→22:27)
[2023-03-25] MEDS ORDERED: NS 0.9% 1000 ml BAG 1,000 ML IV ONE (13:06)
[2023-03-25] MEDS: Ondansetron 4 mg VIAL 2 MG/ML 2 ml VIAL IV PRN (21:04)
[2023-03-25] MEDS: hydrALAZINE 20 mg/ml 1 ML Vial IV IV SLOW PU PRN (23:05)
[2023-03-26] MEDS: D5W 1/2 NS 40 Meq KCL 1000 ml 1,000 ML IV SCH ×2 (04:38→13:33)
[2023-03-26 06:13] LABS: ABS Basophils 0.1 10^3/uL (0.0-0.1); ABS Eosinophils 0.2 10^3/uL (0.0-0.5); ABS Monocytes 0.9 10^3/uL (0.0-1.1); ABS Neutrophils 10.3 10^3/uL (1.5-7.6); ABS Nucleated RBC 0.01 10^3/ul; Eosinophil % 1.6 %; Hematocrit 41.2 % (38-53); Hemoglobin 14.2 g/dL (13.2-16.3); Lymphocyte % 7.7 %; Mean Corpuscular Hemoglobin 30.4 pg (27-33); Mean Corpuscular Hgb Conc 34.3 g/dL (31-36); Mean Corpuscular Volume 88.6 fL (80-97); Mean Platelet Volume 9.7 fL (7.5-11.2); Nucleated Red Blood Cells % 0.1 /100 WBC (0.0-0.4); Platelet Count 188 10^3/uL (150-450); Red Blood Count 4.66 10^6/uL (4.06-5.63); Red Cell Distribution Width 13.7 % (12-17); White Blood Count 12.4 10^3/uL (3.6-10.2)
[2023-03-26] MEDS: ZOSYN 3.375 GM Q8H per EXTENDED INFUSION IV SCH ×3 (06:14→22:42)
[2023-03-26 07:25] LABS: Calcium 8.7 mg/dL (8.6-10.3); Creatinine, Serum 0.8 mg/dL (0.67-1.17); eGFR CKD-EPI 102.6 (>60)
[2023-03-26] MEDS: hydrALAZINE 20 mg/ml 1 ML Vial IV IV SLOW PU PRN (10:27)
[2023-03-26] MEDS: [UNRECOGNIZED DRUG - OTHER] PO PRN (11:21)
[2023-03-26] MEDS: NICOTINE PO PRN (11:21)
[2023-03-26] MEDS: Ondansetron 4 mg VIAL 2 MG/ML 2 ml VIAL IV PRN ×2 (14:20→18:45)
[2023-03-27] MEDS: hydrALAZINE 20 mg/ml 1 ML Vial IV IV SLOW PU PRN (00:12)
[2023-03-27] MEDS: D5W 1/2 NS 40 Meq KCL 1000 ml 1,000 ML IV SCH ×2 (04:25→16:15)
[2023-03-27] MEDS: ZOSYN 3.375 GM Q8H per EXTENDED INFUSION IV SCH ×2 (06:03→16:14)
[2023-03-27] MEDS: Ondansetron 4 mg VIAL 2 MG/ML 2 ml VIAL IV PRN ×2 (09:40→15:04)
[2023-03-27] MEDS ORDERED: Iohexol 350 (CONTRAST) 500 ML MDV IV ONE (12:17)
[2023-03-27] MEDS: HYDROmorphone 1 MG/1 ML SYRINGE IV SLOW PU PRN (13:10)
[2023-03-27] MEDS: NICOTINE PO PRN (14:09)
[2023-03-27] MEDS: [UNRECOGNIZED DRUG - OTHER] PO PRN (14:09)
[2023-03-27] MEDS ORDERED: Propofol 10 MG/ML 20 ML BTL ONE (16:18)
[2023-03-27] MEDS ORDERED: fentaNYL 100 mcg/2 ml 50 MCG/ML VIAL ONE ×2 (16:18→17:20)
[2023-03-27] MEDS ORDERED: Midazolam 2 mg/2 ml VIAL 1 mg/ml 2 ml VIAL (2 mg) ONE ×2 (16:18→21:39)
[2023-03-27] MEDS ORDERED: Lidocaine 2% PF 5 ML VIAL ONE (16:18)
[2023-03-27] MEDS ORDERED: Rocuronium 50 mg VIAL 10 mg/ml 5 ml VIAL (50 mg) ONE ×3 (16:18→19:38)
[2023-03-27] MEDS ORDERED: Succinylcholine 200 mg VIAL 20 mg/ml 10 ml VIAL (200 mg) ONE (16:23)
[2023-03-27] MEDS ORDERED: HYDROmorphone 0.5 MG/0.5 ML SYRINGE ONE ×7 (17:21→21:23)
[2023-03-27] MEDS ORDERED: Dexamethasone IV 4 MG/ML VIAL 1 ml VIAL ONE (17:24)
[2023-03-27] MEDS ORDERED: Ondansetron 4 mg VIAL 2 MG/ML 2 ml VIAL ONE (17:24)
[2023-03-27] MEDS ORDERED: Acetaminophen IV 1 GM/100ML 1,000 MG/100 ML BAG IV ONE (17:57)
[2023-03-27] MEDS ORDERED: HYDROmorphone 1 MG/1 ML SYRINGE IV PRN (18:58)
[2023-03-27] MEDS ORDERED: Ondansetron 4 mg VIAL 2 MG/ML 2 ml VIAL IV PRN (18:58)
[2023-03-27] MEDS ORDERED: fentaNYL 100 mcg/2 ml 50 MCG/ML VIAL IV PRN (18:58)
[2023-03-27] MEDS ORDERED: Naloxone 0.4 mg VIAL 0.4 mg/ml 1 ml VIAL IV PRN (18:58)
[2023-03-27] MEDS ORDERED: Bupivacaine 0.5% SDV PF 30ML VIAL ONE (19:58)
[2023-03-27] MEDS ORDERED: Naloxone 0.4 mg VIAL 0.4 mg/ml 1 ml VIAL IV PUSH PRN (21:10)
[2023-03-27] MEDS: HYDROmorphone PCA 20 MG/20 ML PCA.SYRING PCA SCH (22:04)
[2023-03-27] MEDS: NS 0.9% 1,000 ML IV SCH (22:04)
[2023-03-28] MEDS: ZOSYN 3.375 GM Q8H per EXTENDED INFUSION IV SCH ×4 (00:44→22:25)
[2023-03-28] MEDS: NS 0.9% 1,000 ML IV SCH ×2 (04:40→11:34)
[2023-03-28 06:02] LABS: Hematocrit 43.8 % (38-53); Hemoglobin 14.8 g/dL (13.2-16.3); Mean Corpuscular Hemoglobin 30.1 pg (27-33); Mean Corpuscular Hgb Conc 33.8 g/dL (31-36); Platelet Count 265 10^3/uL (150-450); Red Blood Count 4.92 10^6/uL (4.06-5.63); Red Cell Distribution Width 14.2 % (12-17)
[2023-03-28 06:30] LABS: ABS Lymphocytes 0.9 10^3/uL (1.0-4.8); ABS Neutrophils 15.1 10^3/uL (1.5-7.6); ABS Nucleated RBC 0.01 10^3/ul; Lymphocyte % 5.3 %
[2023-03-28 06:36] LABS: Calcium 8.5 mg/dL (8.6-10.3); Creatinine, Serum 0.95 mg/dL (0.67-1.17); Magnesium 1.9 mg/dL (1.9-2.7); Potassium 4.5 mmol/L (3.5-5.0); eGFR CKD-EPI 92.8 (>60)
[2023-03-28] MEDS: hydrALAZINE 20 mg/ml 1 ML Vial IV IV SLOW PU PRN (21:01)
[2023-03-28] MEDS: [UNRECOGNIZED DRUG - OTHER] PO PRN (21:36)
[2023-03-28] MEDS: Ondansetron 4 mg VIAL 2 MG/ML 2 ml VIAL IV PRN (21:36)
[2023-03-28] MEDS: NICOTINE PO PRN (21:36)
[2023-03-28] MEDS ORDERED: Labetalol IV 5 MG/ML 20 ml VIAL IV PUSH PRN (22:56)
[2023-03-28] MEDS ORDERED: NS 0.9% 1000 ml BAG 1,000 ML IV SCH (23:03)
[2023-03-28 23:17] LABS: Hematocrit 41.1 % (38-53); Hemoglobin 13.8 g/dL (13.2-16.3); Mean Corpuscular Hemoglobin 30.3 pg (27-33); Mean Corpuscular Hgb Conc 33.6 g/dL (31-36); Mean Platelet Volume 9.8 fL (7.5-11.2); Platelet Count 275 10^3/uL (150-450); Red Blood Count 4.57 10^6/uL (4.06-5.63); Red Cell Distribution Width 14.1 % (12-17); White Blood Count 16.6 10^3/uL (3.6-10.2)
[2023-03-28 23:34] LABS: Calcium 8.2 mg/dL (8.6-10.3); Creatinine, Serum 0.71 mg/dL (0.67-1.17); Potassium 3.6 mmol/L (3.5-5.0); eGFR CKD-EPI 106.3 (>60)
[2023-03-29 00:18] LABS: ABS Basophils 0.1 10^3/uL (0.0-0.1); ABS Eosinophils 0.1 10^3/uL (0.0-0.5); ABS Lymphocytes 1.2 10^3/uL (1.0-4.8); ABS Monocytes 1.1 10^3/uL (0.0-1.1); ABS Neutrophils 14.1 10^3/uL (1.5-7.6); ABS Nucleated RBC 0.01 10^3/ul; Eosinophil % 0.4 %; Lymphocyte % 7.4 %
[2023-03-29] MEDS: hydrALAZINE 20 mg/ml 1 ML Vial IV IV SLOW PU PRN (05:23)
[2023-03-29] MEDS: ZOSYN 3.375 GM Q8H per EXTENDED INFUSION IV SCH ×3 (05:26→22:42)
[2023-03-29 05:50] LABS: Hemoglobin 13.7 g/dL (13.2-16.3); Mean Corpuscular Hemoglobin 30.6 pg (27-33); Mean Corpuscular Hgb Conc 34.2 g/dL (31-36); Mean Corpuscular Volume 89.6 fL (80-97); Mean Platelet Volume 9.3 fL (7.5-11.2); Platelet Count 281 10^3/uL (150-450); Red Blood Count 4.47 10^6/uL (4.06-5.63); Red Cell Distribution Width 14.2 % (12-17); White Blood Count 15.7 10^3/uL (3.6-10.2)
[2023-03-29 06:22] LABS: RBC Morphology Normal (Normal)
[2023-03-29 06:23] LABS: ABS Eosinophils 0.1 10^3/uL (0.0-0.5); ABS Lymphocytes 1.4 10^3/uL (1.0-4.8); ABS Neutrophils 13.1 10^3/uL (1.5-7.6); ABS Nucleated RBC 0.01 10^3/ul; Eosinophil % 0.8 %; Lymphocyte % 9.1 %
[2023-03-29] MEDS: Enoxaparin 40 MG/0.4 ML SYR SUBCUT SCH (12:52)
[2023-03-29] MEDS: Famotidine IV 10 MG/ML 2 ml VIAL (20 mg) IV SLOW PU SCH ×2 (12:53→20:39)
[2023-03-29] MEDS: HYDROmorphone PCA 20 MG/20 ML PCA.SYRING PCA SCH (13:27)
[2023-03-30] MEDS: hydrALAZINE 20 mg/ml 1 ML Vial IV IV SLOW PU PRN (01:59)
[2023-03-30] MEDS: ZOSYN 3.375 GM Q8H per EXTENDED INFUSION IV SCH ×3 (06:03→22:37)
[2023-03-30] MEDS: Ondansetron 4 mg VIAL 2 MG/ML 2 ml VIAL IV PRN (08:56)
[2023-03-30] MEDS: Famotidine IV 10 MG/ML 2 ml VIAL (20 mg) IV SLOW PU SCH ×2 (09:51→20:01)
[2023-03-30] MEDS ORDERED: Morphine 2 MG/ML SYRINGE IV PRN (12:42)
[2023-03-30] MEDS: Enoxaparin 40 MG/0.4 ML SYR SUBCUT SCH (12:47)
[2023-03-30] MEDS: oxyCODONE/Acetamin 5/325 mg TAB PO PRN (20:01)
[2023-03-31] MEDS: oxyCODONE/Acetamin 5/325 mg TAB PO PRN ×3 (05:05→18:42)
[2023-03-31] MEDS: ZOSYN 3.375 GM Q8H per EXTENDED INFUSION IV SCH (06:05)
[2023-03-31] MEDS: Famotidine IV 10 MG/ML 2 ml VIAL (20 mg) IV SLOW PU SCH ×2 (09:12→21:38)
[2023-03-31] MEDS: Enoxaparin 40 MG/0.4 ML SYR SUBCUT SCH (11:28)
[2023-03-31] MEDS: Amoxicillin/Clavul 875/125 TAB (Augmentin 875 tab) PO SCH ×2 (11:29→21:44)
[2023-03-31] MEDS: hydrALAZINE 20 mg/ml 1 ML Vial IV IV SLOW PU PRN ×2 (14:43→21:40)
[2023-03-31] MEDS: Morphine 2 MG/ML SYRINGE IV PRN (21:31)
[2023-03-31] MEDS: Ondansetron 4 mg VIAL 2 MG/ML 2 ml VIAL IV PRN (21:34)
[2023-04-01] MEDS: Morphine 2 MG/ML SYRINGE IV PRN (03:23)
[2023-04-01] MEDS: hydrALAZINE 20 mg/ml 1 ML Vial IV IV SLOW PU PRN ×2 (06:36→15:34)
[2023-04-01] MEDS: Famotidine IV 10 MG/ML 2 ml VIAL (20 mg) IV SLOW PU SCH ×2 (08:44→21:00)
[2023-04-01] MEDS: oxyCODONE/Acetamin 5/325 mg TAB PO PRN ×2 (08:44→15:34)
[2023-04-01] MEDS: Amoxicillin/Clavul 875/125 TAB (Augmentin 875 tab) PO SCH ×2 (08:44→21:03)
[2023-04-01] MEDS ORDERED: Magnesium Sulfate 2 gm BAG 2 GM/50 ML BAG IVPB ONE (08:45)
[2023-04-01 10:00] LABS: Calcium 8.6 mg/dL (8.6-10.3); Creatinine, Serum 0.66 mg/dL (0.67-1.17); Magnesium 2.2 mg/dL (1.9-2.7); Phosphorus 2.1 mg/dL (2.5-5.0); Potassium 3.7 mmol/L (3.5-5.0); eGFR CKD-EPI 108.7 (>60)
[2023-04-01] MEDS: Enoxaparin 40 MG/0.4 ML SYR SUBCUT SCH (13:27)
[2023-04-01] MEDS ORDERED: Labetalol IV 5 MG/ML 20 ml VIAL IV PUSH PRN (18:05)
[2023-04-01] MEDS ORDERED: hydrALAZINE 20 mg/ml 1 ML Vial IV IV SLOW PU PRN (18:06)
[2023-04-01] MEDS ORDERED: Potassium Phosphate IV 15 MMOL in NS 0.9% 250 ml 250 ML IVPB ONE (18:30)
[2023-04-01] MEDS: Ondansetron 4 mg VIAL 2 MG/ML 2 ml VIAL IV PRN (20:55)
[2023-04-02 06:52] LABS: ABS Basophils 0.1 10^3/uL (0.0-0.1); ABS Eosinophils 0.3 10^3/uL (0.0-0.5); ABS Lymphocytes 1.7 10^3/uL (1.0-4.8); ABS Monocytes 0.8 10^3/uL (0.0-1.1); ABS Neutrophils 10.9 10^3/uL (1.5-7.6); Hematocrit 40.4 % (38-53); Hemoglobin 13.8 g/dL (13.2-16.3); Lymphocyte % 12.3 %; Mean Corpuscular Hemoglobin 30.3 pg (27-33); Mean Corpuscular Hgb Conc 34.2 g/dL (31-36); Mean Corpuscular Volume 88.6 fL (80-97); Mean Platelet Volume 9.5 fL (7.5-11.2); Platelet Count 331 10^3/uL (150-450); Red Blood Count 4.56 10^6/uL (4.06-5.63); Red Cell Distribution Width 14.5 % (12-17); White Blood Count 13.7 10^3/uL (3.6-10.2)
[2023-04-02 07:11] LABS: Calcium 8.3 mg/dL (8.6-10.3); Creatinine, Serum 0.72 mg/dL (0.67-1.17); Potassium 3.9 mmol/L (3.5-5.0); eGFR CKD-EPI 105.9 (>60)
[2023-04-02] MEDS: Amoxicillin/Clavul 875/125 TAB (Augmentin 875 tab) PO SCH (07:53)
[2023-04-02] MEDS: Famotidine IV 10 MG/ML 2 ml VIAL (20 mg) IV SLOW PU SCH ×2 (07:54→20:36)
[2023-04-02] MEDS ORDERED: Potassium Acid Phos 500 mg TAB PO ONE (09:33)
[2023-04-02] MEDS ORDERED: Iohexol 350 (CONTRAST) 500 ML MDV IV ONE (10:13)
[2023-04-02] MEDS ORDERED: ZOSYN 3.375 GM x ONE DOSE over 30 miuntes IV (12:30)
[2023-04-02] MEDS ORDERED: Morphine 2 MG/ML SYRINGE IV PRN (12:35)
[2023-04-02] MEDS: Enoxaparin 40 MG/0.4 ML SYR SUBCUT SCH (12:39)
[2023-04-02] MEDS: Morphine 2 MG/ML SYRINGE IV PRN (12:39)
[2023-04-02] MEDS: ZOSYN 3.375 GM x ONE DOSE over 30 miuntes IV ×2 (13:33→13:40)
[2023-04-02] MEDS: oxyCODONE/Acetamin 5/325 mg TAB PO PRN (13:33)
[2023-04-02] MEDS: Ondansetron 4 mg VIAL 2 MG/ML 2 ml VIAL IV PRN (14:38)
[2023-04-02] MEDS: HYDROmorphone 1 MG/1 ML SYRINGE IV SLOW PU PRN ×2 (14:38→22:51)
[2023-04-02] MEDS: Piperacillin/Tazobac ADVAN 3.375 GM in NS 0.9% 100 ml BAG 100 ML IV SCH (19:38)
[2023-04-02 22:24] LABS: Calcium 8.4 mg/dL (8.6-10.3); Creatinine, Serum 0.77 mg/dL (0.67-1.17); Magnesium 2.2 mg/dL (1.9-2.7); Phosphorus 2.8 mg/dL (2.5-5.0); Potassium 3.9 mmol/L (3.5-5.0); eGFR CKD-EPI 103.8 (>60)
[2023-04-02] MEDS ORDERED: KCL 20 MEQ/100 ML IVPREMIX 20 MEQ/100 ML BAG IV ONE (22:34)
[2023-04-03] MEDS ORDERED: NS 0.9% 500 ml BAG 500 ML IV ONE (01:38)
[2023-04-03] MEDS: Piperacillin/Tazobac ADVAN 3.375 GM in NS 0.9% 100 ml BAG 100 ML IV SCH ×4 (03:48→20:04)
[2023-04-03 06:02] LABS: Hematocrit 39.1 % (38-53); Hemoglobin 13.2 g/dL (13.2-16.3); Mean Corpuscular Hemoglobin 29.6 pg (27-33); Mean Corpuscular Hgb Conc 33.8 g/dL (31-36); Mean Corpuscular Volume 87.6 fL (80-97); Mean Platelet Volume 9.4 fL (7.5-11.2); Platelet Count 355 10^3/uL (150-450); Red Blood Count 4.46 10^6/uL (4.06-5.63); Red Cell Distribution Width 14.2 % (12-17); White Blood Count 12.7 10^3/uL (3.6-10.2)
[2023-04-03] MEDS: oxyCODONE/Acetamin 5/325 mg TAB PO PRN (06:04)
[2023-04-03 06:17] LABS: Calcium 8.3 mg/dL (8.6-10.3); Creatinine, Serum 0.8 mg/dL (0.67-1.17); Phosphorus 2.7 mg/dL (2.5-5.0); Potassium 4.1 mmol/L (3.5-5.0); eGFR CKD-EPI 102.6 (>60)
[2023-04-03 07:25] LABS: RBC Morphology Normal (Normal)
[2023-04-03 07:26] LABS: ABS Basophils 0.1 10^3/uL (0.0-0.1); ABS Eosinophils 0.3 10^3/uL (0.0-0.5); ABS Lymphocytes 1.8 10^3/uL (1.0-4.8); ABS Monocytes 0.9 10^3/uL (0.0-1.1); ABS Neutrophils 9.6 10^3/uL (1.5-7.6); ABS Nucleated RBC 0.02 10^3/ul; Eosinophil % 2.3 %; Lymphocyte % 13.9 %; Nucleated Red Blood Cells % 0.1 /100 WBC (0.0-0.4)
[2023-04-03] MEDS: Famotidine IV 10 MG/ML 2 ml VIAL (20 mg) IV SLOW PU SCH ×2 (08:43→22:07)
[2023-04-03] MEDS: HYDROmorphone 1 MG/1 ML SYRINGE IV SLOW PU PRN ×4 (08:44→22:07)
[2023-04-03] MEDS: Enoxaparin 40 MG/0.4 ML SYR SUBCUT SCH (11:58)
[2023-04-03] MEDS ORDERED: D5LR 1000 ml BAG 1,000 ML IV SCH (12:00)
[2023-04-03] MEDS ORDERED: Prochlorperazine 5 mg/ml 2 ml VIAL (10 mg) IV PRN (15:03)
[2023-04-03] MEDS ORDERED: Naloxone 0.4 mg VIAL 0.4 mg/ml 1 ml VIAL IV PRN (15:03)
[2023-04-03] MEDS ORDERED: Propofol 10 MG/ML 20 ML BTL ONE ×2 (15:07→15:54)
[2023-04-03] MEDS ORDERED: Lidocaine 2% PF 5 ML VIAL ONE (15:07)
[2023-04-03] MEDS ORDERED: fentaNYL 100 mcg/2 ml 50 MCG/ML VIAL ONE ×2 (15:08→17:05)
[2023-04-03] MEDS ORDERED: Rocuronium 50 mg VIAL 10 mg/ml 5 ml VIAL (50 mg) ONE ×2 (15:10→15:47)
[2023-04-03] MEDS ORDERED: Midazolam 2 mg/2 ml VIAL 1 mg/ml 2 ml VIAL (2 mg) ONE (15:18)
[2023-04-03] MEDS ORDERED: Ondansetron 4 mg VIAL 2 MG/ML 2 ml VIAL ONE (16:25)
[2023-04-03] MEDS ORDERED: Metoclopramide 5 MG/ML VIAL (10 mg) ONE (16:30)
[2023-04-03] MEDS ORDERED: Sugammadex 500 MG/5 ML 5 ml VIAL IV PUSH ONE (16:31)
[2023-04-03] MEDS ORDERED: HYDROmorphone 1 MG/1 ML SYRINGE ONE ×2 (17:05→17:24)
[2023-04-03] MEDS: fentaNYL 100 mcg/2 ml 50 MCG/ML VIAL IV PRN ×4 (17:08→18:10)
[2023-04-03] MEDS: HYDROmorphone 1 MG/1 ML SYRINGE IV PRN ×5 (17:22→17:56)
[2023-04-03] MEDS ORDERED: Acetaminophen IV 1 GM/100ML 1,000 MG/100 ML BAG IV ONE ×2 (17:51)
[2023-04-03] MEDS ORDERED: NS 0.9% 1,000 ML IV SCH (19:00)
[2023-04-04] MEDS: HYDROmorphone 1 MG/1 ML SYRINGE IV SLOW PU PRN ×9 (00:40→23:24)
[2023-04-04] MEDS: Piperacillin/Tazobac ADVAN 3.375 GM in NS 0.9% 100 ml BAG 100 ML IV SCH ×3 (03:15→20:32)
[2023-04-04] MEDS: Famotidine IV 10 MG/ML 2 ml VIAL (20 mg) IV SLOW PU SCH ×2 (07:38→20:32)
[2023-04-04 08:11] LABS: ABS Basophils 0.1 10^3/uL (0.0-0.1); ABS Eosinophils 0.3 10^3/uL (0.0-0.5); ABS Lymphocytes 1.8 10^3/uL (1.0-4.8); ABS Monocytes 0.8 10^3/uL (0.0-1.1); ABS Neutrophils 12.9 10^3/uL (1.5-7.6); Eosinophil % 1.7 %; Hematocrit 41.9 % (38-53); Hemoglobin 14.3 g/dL (13.2-16.3); Lymphocyte % 11.4 %; Mean Corpuscular Hemoglobin 30.2 pg (27-33); Mean Corpuscular Hgb Conc 34.2 g/dL (31-36); Mean Corpuscular Volume 88.4 fL (80-97); Mean Platelet Volume 8.8 fL (7.5-11.2); Platelet Count 414 10^3/uL (150-450); Red Blood Count 4.74 10^6/uL (4.06-5.63); Red Cell Distribution Width 14.2 % (12-17)
[2023-04-04 08:21] LABS: Calcium 8.6 mg/dL (8.6-10.3); Creatinine, Serum 0.88 mg/dL (0.67-1.17); Magnesium 2.1 mg/dL (1.9-2.7); Phosphorus 2.7 mg/dL (2.5-5.0); Potassium 4.2 mmol/L (3.5-5.0); eGFR CKD-EPI 99.7 (>60)
[2023-04-04] MEDS: oxyCODONE/Acetamin 5/325 mg TAB PO PRN (10:42)
[2023-04-04] MEDS: Enoxaparin 40 MG/0.4 ML SYR SUBCUT SCH (12:02)
[2023-04-05] MEDS: oxyCODONE/Acetamin 5/325 mg TAB PO PRN ×2 (00:52→07:47)
[2023-04-05] MEDS: Piperacillin/Tazobac ADVAN 3.375 GM in NS 0.9% 100 ml BAG 100 ML IV SCH ×3 (04:17→20:08)
[2023-04-05] MEDS: HYDROmorphone 1 MG/1 ML SYRINGE IV SLOW PU PRN ×5 (04:19→16:53)
[2023-04-05 06:54] LABS: ABS Basophils 0.1 10^3/uL (0.0-0.1); ABS Eosinophils 0.3 10^3/uL (0.0-0.5); ABS Lymphocytes 1.6 10^3/uL (1.0-4.8); ABS Monocytes 0.9 10^3/uL (0.0-1.1); ABS Neutrophils 10.2 10^3/uL (1.5-7.6); ABS Nucleated RBC 0.01 10^3/ul; Eosinophil % 2.3 %; Hematocrit 41.6 % (38-53); Hemoglobin 14.1 g/dL (13.2-16.3); Lymphocyte % 12.6 %; Mean Corpuscular Hemoglobin 30.3 pg (27-33); Mean Corpuscular Hgb Conc 33.9 g/dL (31-36); Mean Corpuscular Volume 89.2 fL (80-97); Mean Platelet Volume 9.6 fL (7.5-11.2); Nucleated Red Blood Cells % 0.1 /100 WBC (0.0-0.4); Platelet Count 436 10^3/uL (150-450); Red Blood Count 4.66 10^6/uL (4.06-5.63); Red Cell Distribution Width 14.1 % (12-17); White Blood Count 13.1 10^3/uL (3.6-10.2)
[2023-04-05] MEDS: Famotidine IV 10 MG/ML 2 ml VIAL (20 mg) IV SLOW PU SCH ×2 (07:48→21:11)
[2023-04-05] MEDS ORDERED: HYDROcodone/ACETAMIN 5/325 mg TAB PO PRN (12:00)
[2023-04-05] MEDS: HYDROcodone/ACETAMIN 5/325 mg TAB PO PRN ×2 (12:13→21:37)
[2023-04-05] MEDS: Enoxaparin 40 MG/0.4 ML SYR SUBCUT SCH (12:16)
[2023-04-05] MEDS: Ondansetron 4 mg VIAL 2 MG/ML 2 ml VIAL IV PRN (15:56)
[2023-04-06] MEDS: Piperacillin/Tazobac ADVAN 3.375 GM in NS 0.9% 100 ml BAG 100 ML IV SCH ×3 (04:17→20:44)
[2023-04-06] MEDS: HYDROcodone/ACETAMIN 5/325 mg TAB PO PRN ×4 (04:23→20:44)
[2023-04-06] MEDS: Enoxaparin 40 MG/0.4 ML SYR SUBCUT SCH (13:53)
[2023-04-06] MEDS: Famotidine IV 10 MG/ML 2 ml VIAL (20 mg) IV SLOW PU SCH (14:08)
[2023-04-07] MEDS: Piperacillin/Tazobac ADVAN 3.375 GM in NS 0.9% 100 ml BAG 100 ML IV SCH ×2 (03:58→15:19)
[2023-04-07] MEDS: HYDROcodone/ACETAMIN 5/325 mg TAB PO PRN ×2 (05:39→15:17)
[2023-04-07 06:20] LABS: ABS Basophils 0.1 10^3/uL (0.0-0.1); ABS Eosinophils 0.2 10^3/uL (0.0-0.5); ABS Monocytes 0.8 10^3/uL (0.0-1.1); ABS Neutrophils 8.7 10^3/uL (1.5-7.6); ABS Nucleated RBC 0.02 10^3/ul; Eosinophil % 2.1 %; Hemoglobin 14.6 g/dL (13.2-16.3); Mean Corpuscular Hemoglobin 29.8 pg (27-33); Mean Corpuscular Volume 87.8 fL (80-97); Mean Platelet Volume 9.3 fL (7.5-11.2); Nucleated Red Blood Cells % 0.2 /100 WBC (0.0-0.4); Platelet Count 566 10^3/uL (150-450); Red Cell Distribution Width 14.3 % (12-17); White Blood Count 11.8 10^3/uL (3.6-10.2)
[2023-04-07 06:29] LABS: Calcium 9.1 mg/dL (8.6-10.3); Creatinine, Serum 0.92 mg/dL (0.67-1.17); Magnesium 2.1 mg/dL (1.9-2.7); Phosphorus 2.6 mg/dL (2.5-5.0); Potassium 4.1 mmol/L (3.5-5.0); eGFR CKD-EPI 96.4 (>60)
[2023-04-07] MEDS ORDERED: HYDROmorphone 1 MG/1 ML SYRINGE IV SLOW PU PRN (09:25)
[2023-04-07] MEDS: Enoxaparin 40 MG/0.4 ML SYR SUBCUT SCH (12:00)
[2023-04-07 14:42] VITALS: BP 151/95
== END 2023-04-07 18:15 | disposition home or self-care (01) | DRG 221 ==
LOC: ED 09:12 → EDHOLD 09:12 → SSU 20:00
PROVIDERS: ADMIT Surgery; ATTEND Surgery

== ENCOUNTER 2023-07-08 05:33 | Inpatient (IN) ==
[2023-07-08] MEDS ORDERED: Famotidine IV 10 MG/ML 2 ml VIAL (20 mg) ONE (05:56)
[2023-07-08] MEDS ORDERED: Lactated Ringers 1000 ml BAG 1,000 ML IV SCH (06:00)
[2023-07-08] MEDS ORDERED: Famotidine IV 10 MG/ML 2 ml VIAL (20 mg) IV ONE (06:00)
[2023-07-08] MEDS ORDERED: Buffered Lidocaine 1% SYRIN 1 ml INTRADERM ONE (06:00)
[2023-07-08] MEDS ORDERED: Propofol 10 MG/ML 20 ML BTL ONE (06:07)
[2023-07-08] MEDS ORDERED: Lidocaine 2% PF 5 ML VIAL ONE (06:07)
[2023-07-08] MEDS ORDERED: Ondansetron 4 mg VIAL 2 MG/ML 2 ml VIAL ONE (06:07)
[2023-07-08] MEDS ORDERED: Dexamethasone IV 4 MG/ML VIAL 1 ml VIAL ONE (06:07)
[2023-07-08] MEDS ORDERED: Rocuronium 50 mg VIAL 10 mg/ml 5 ml VIAL (50 mg) ONE ×3 (06:08→11:10)
[2023-07-08] MEDS ORDERED: fentaNYL 100 mcg/2 ml 50 MCG/ML VIAL ONE ×4 (06:08→12:44)
[2023-07-08] MEDS ORDERED: Midazolam 2 mg/2 ml VIAL 1 mg/ml 2 ml VIAL (2 mg) ONE (06:08)
[2023-07-08 06:12] LABS: Rapid COVID-19 Molecular Undetected (Undetected)
[2023-07-08] MEDS ORDERED: Ertapenem 1 GM in NS 0.9% 50 ML IVPB ONE (07:00)
[2023-07-08] MEDS ORDERED: Bupivacaine 0.5% SDV PF 30ML VIAL ONE (07:08)
[2023-07-08] MEDS ORDERED: Lidocaine 1.5% EPI 1:200,000 30 ML SDV ONE (07:46)
[2023-07-08] MEDS ORDERED: Bupivacaine 0.25% SDV PF 10 ML VIAL INJ ONE (08:10)
[2023-07-08] MEDS ORDERED: Lactated Ringers 1000 ml BAG 500 ML IV PRN (10:29)
[2023-07-08] MEDS ORDERED: ROPIVACAINE 0.2% EPIDURAL SCH (11:00)
[2023-07-08] MEDS ORDERED: Ondansetron 4 mg VIAL 2 MG/ML 2 ml VIAL IV PRN (12:30)
[2023-07-08] MEDS ORDERED: HYDROcodone/ACETAMIN 5/325 mg TAB PO PRN (12:39)
[2023-07-08] MEDS ORDERED: fentaNYL 250 mcg/5 ml 50 MCG/ML 5 ml VIAL (250 MCG) ONE (12:41)
[2023-07-08] MEDS ORDERED: Bupivacaine 0.25% SDV 30 ML ONE (13:00)
[2023-07-08] MEDS: ROPIVACAINE 0.2% EPIDURAL SCH (15:15)
[2023-07-08] MEDS: Lactated Ringers 1000 ml BAG 1,000 ML IV SCH (15:15)
[2023-07-08] MEDS: HYDROmorphone 1 MG/1 ML SYRINGE IV SLOW PU PRN ×3 (15:57→22:15)
[2023-07-09] MEDS: Lactated Ringers 1000 ml BAG 1,000 ML IV SCH ×3 (01:14→20:57)
[2023-07-09] MEDS: HYDROmorphone 1 MG/1 ML SYRINGE IV SLOW PU PRN ×3 (01:21→07:20)
[2023-07-09] MEDS: ROPIVACAINE 0.2% EPIDURAL SCH ×3 (01:52→23:18)
[2023-07-09 06:13] LABS: ABS Lymphocytes 1.6 10^3/uL (1.0-4.8); ABS Monocytes 1.2 10^3/uL (0.0-1.1); ABS Neutrophils 9.3 10^3/uL (1.5-7.6); ABS Nucleated RBC 0.04 10^3/ul; Eosinophil % 0.1 %; Hematocrit 49.3 % (38-53); Hemoglobin 16.7 g/dL (13.2-16.3); Lymphocyte % 13.4 %; Mean Corpuscular Hemoglobin 29.5 pg (27-33); Mean Corpuscular Hgb Conc 33.9 g/dL (31-36); Mean Corpuscular Volume 87.1 fL (80-97); Mean Platelet Volume 9.7 fL (7.5-11.2); Nucleated Red Blood Cells % 0.3 %/100WBC (0.0-0.8); Platelet Count 207 10^3/uL (150-450); Red Blood Count 5.66 10^6/uL (4.06-5.63); Red Cell Distribution Width 13.9 % (12-17); White Blood Count 12.1 10^3/uL (3.6-10.2)
[2023-07-09 06:40] LABS: Calcium 9.1 mg/dL (8.6-10.3); Creatinine, Serum 0.8 mg/dL (0.67-1.17); eGFR CKD-EPI 102.6 (>60)
[2023-07-09 08:44] LABS: Activated Partial Thrombo Time 29.4 seconds (26.0-38.0); INR 1.2 (0.83-1.13)
[2023-07-09] MEDS: Heparin 5000 UNITS/ML 1 mL VIAL SUBCUT SCH ×2 (14:09→21:42)
[2023-07-10] MEDS: Heparin 5000 UNITS/ML 1 mL VIAL SUBCUT SCH ×3 (05:20→22:52)
[2023-07-10] MEDS: Lactated Ringers 1000 ml BAG 1,000 ML IV SCH ×2 (06:30→16:13)
[2023-07-10] MEDS: ROPIVACAINE 0.2% EPIDURAL SCH (10:32)
[2023-07-10] MEDS: HYDROmorphone 1 MG/1 ML SYRINGE IV SLOW PU PRN (22:54)
[2023-07-11] MEDS: Lactated Ringers 1000 ml BAG 1,000 ML IV SCH (02:05)
[2023-07-11] MEDS: Heparin 5000 UNITS/ML 1 mL VIAL SUBCUT SCH (05:46)
[2023-07-11 09:56] VITALS: BP 130/86
== END 2023-07-11 13:55 | disposition home or self-care (01) | DRG 221 ==
LOC: OR 05:33 → SSU 15:13
PROVIDERS: ADMIT Surgery; ATTEND Surgery